=== PATIENT | male | born 1960 | race Caucasian/White ===

== ENCOUNTER 2020-11-13 07:15 | Inpatient (IN) ==
[2020-11-13] MEDS ORDERED: *HR* Propofol 200 MG/20 ML VIAL IVP ONE ×3 (07:53→11:28)
[2020-11-13] MEDS ORDERED: *HR* FentaNYL (PF) 100 MCG/2 ML VIAL ONE ×2 (07:53→11:47)
[2020-11-13] MEDS ORDERED: *HR* Midazolam HCl 2 MG/2 ML VIAL ONE (07:53)
[2020-11-13] MEDS ORDERED: Lidocaine -MPF 2% 2 ML VIAL ONE ×2 (07:55→10:36)
[2020-11-13] MEDS ORDERED: Ondansetron 4 MG/2 ML VIAL ONE (07:55)
[2020-11-13] MEDS ORDERED: *HR* Rocuronium Bromide 50 MG/5 ML VIAL ONE ×3 (07:55→12:20)
[2020-11-13] MEDS ORDERED: CeFAZolin Syr 2,000MG/20 ML 2,000 MG/20 ML SYRINGE IVPB ONE (07:55)
[2020-11-13] MEDS ORDERED: Dexamethasone 4 MG/ML VIAL ONE ×2 (07:55→10:10)
[2020-11-13] MEDS ORDERED: Ringers Solution, Lactated 1,000 ML IVC SCH (08:00)
[2020-11-13] MEDS ORDERED: *HR* HYDROmorphone 2 MG TABLET PO PRN (08:24)
[2020-11-13] MEDS ORDERED: Acetaminophen IV 1,000 MG/100 ML BAG IVPB ONE (08:24)
[2020-11-13] MEDS ORDERED: Pregabalin 75 MG CAPSULE PO ONE (08:24)
[2020-11-13] MEDS ORDERED: *HR* OxyCODONE Immed Rel 5 MG TABLET PO PRN (08:24)
[2020-11-13] MEDS ORDERED: *HR* Labetalol 20 MG/4 ML SYRINGE IVP PRN (08:24)
[2020-11-13] MEDS ORDERED: Famotidine 20 MG/2 ML VIAL IVP ONE (08:24)
[2020-11-13] MEDS ORDERED: *HR* Succinylcholine 200 MG/10 ML VIAL IVP ONE (08:41)
[2020-11-13] MEDS ORDERED: Ketamine *HR* 500 MG/10 ML MDV ONE (08:47)
[2020-11-13] MEDS ORDERED: *HR* Vasopressin 20 UNIT/ML VIAL ONE (08:47)
[2020-11-13] MEDS ORDERED: *HR* Norepinephrine 4 MG/4 ML VIAL IVC ONE (08:57)
[2020-11-13] MEDS ORDERED: Ketorolac 30 MG/ML VIAL ONE (10:24)
[2020-11-13] MEDS ORDERED: *HR* HYDROMORPHONE 2 MG/ML VIAL ONE (10:24)
[2020-11-13] MEDS: *HR* HYDROmorphone (PF) 1 MG/ML SYRINGE IVP PRN ×2 (11:10→11:20)
[2020-11-13] MEDS ORDERED: *HR* HYDROcodone/Acet 5/325 mg TABLET PO PRN (12:11)
[2020-11-13] MEDS ORDERED: Fluticasone Propionate Nasal 50 MCG/SPRAY BOTTLE NS PRN (12:11)
[2020-11-13] MEDS ORDERED: Ondansetron 4 MG/2 ML VIAL IVP PRN (12:11)
[2020-11-13] MEDS ORDERED: Naloxone 0.4 MG/ML INJ IVP PRN (12:11)
[2020-11-13] MEDS ORDERED: D5% in Water 1,000 ML IVC PRN (12:11)
[2020-11-13] MEDS ORDERED: *HR* Dextrose 50 % in Water (Vial) 50 ML VIAL IVP PRN (12:11)
[2020-11-13] MEDS ORDERED: NON-FORMULARY MEDICATION 1 EACH EACH (Hydroxyzine Hcl [Hydroxyzine Hcl] 25 MG Tablet) PO SCH (12:11)
[2020-11-13] MEDS ORDERED: *HR* HYDROcodone/Acet 7.5/325 mg TABLET PO PRN (12:11)
[2020-11-13] MEDS ORDERED: Dextrose Gel 15 GM/37.5 ML TUBE PO PRN ×2 (12:11)
[2020-11-13] MEDS ORDERED: *HR* PHENYLEPHRINE 1,000 MCG/10 ML SYRINGE IVP ONE (12:23)
[2020-11-13] MEDS: Insulin LISPRO 300 UNITS/3 ML VIAL SUBQ SCH ×2 (12:35→17:21)
[2020-11-13] MEDS: 0.9 % Sodium Chloride 1,000 ML IVC SCH (12:37)
[2020-11-13] MEDS: Ketorolac 15 MG/ML VIAL IVP SCH ×2 (12:39→18:17)
[2020-11-13] MEDS: Ipratropium/Albuterol Neb 3 ML IH SCH ×4 (13:03→22:55)
[2020-11-13] MEDS ORDERED: Lidocaine -MPF 4% 5 ML AMPUL ONE (13:30)
[2020-11-13] MEDS: Gabapentin 300 MG CAPSULE PO SCH ×2 (17:25→20:21)
[2020-11-13] MEDS: *HR* Metformin 500 MG TABLET PO SCH (17:25)
[2020-11-13] MEDS: *HR* Heparin 5,000 UNIT/ML VIAL SQ SCH ×2 (17:26→20:20)
[2020-11-13] MEDS: Budesonide/Formoterol 160/4.5 1 PUFF INH IH SCH (19:41)
[2020-11-13] MEDS: Sennosides/Docusate Sodium TABLET PO SCH (20:21)
[2020-11-13] MEDS: Famotidine 20 MG TABLET PO SCH (20:22)
[2020-11-13] MEDS ORDERED: Insulin LISPRO 300 UNITS/3 ML VIAL SUBQ SCH (21:00)
[2020-11-14] MEDS: Ketorolac 15 MG/ML VIAL IVP SCH ×2 (00:35→06:18)
[2020-11-14] MEDS: 0.9 % Sodium Chloride 1,000 ML IVC SCH (02:46)
[2020-11-14] MEDS: Ipratropium/Albuterol Neb 3 ML IH SCH ×3 (04:01→11:44)
[2020-11-14] MEDS: *HR* Heparin 5,000 UNIT/ML VIAL SQ SCH (06:15)
[2020-11-14] MEDS: Insulin LISPRO 300 UNITS/3 ML VIAL SUBQ SCH ×2 (07:50→11:09)
[2020-11-14] MEDS: Sennosides/Docusate Sodium TABLET PO SCH (07:52)
[2020-11-14] MEDS: Gabapentin 300 MG CAPSULE PO SCH (07:52)
[2020-11-14] MEDS: *HR* Metformin 500 MG TABLET PO SCH (07:52)
[2020-11-14] MEDS: Famotidine 20 MG TABLET PO SCH (07:53)
[2020-11-14] MEDS: Budesonide/Formoterol 160/4.5 1 PUFF INH IH SCH (08:05)
[2020-11-14] MEDS ORDERED: Fenofibrate 54 MG TABLET PO SCH (09:00)
[2020-11-14] MEDS ORDERED: [UNRECOGNIZED DRUG - OTHER] PO SCH (09:00)
[2020-11-14] MEDS ORDERED: hydroCHLOROthiazide 25 MG TABLET PO SCH (09:00)
[2020-11-14] MEDS ORDERED: *HR* GlipiZIDE XL (24 HR) 10 MG TABLET PO SCH (09:00)
[2020-11-14] MEDS ORDERED: BENAZEPRIL PO SCH (09:00)
[2020-11-14] MEDS ORDERED: NON-FORMULARY MEDICATION 1 EACH EACH (Fluticasone/Umeclidin/Vilanter [Trelegy Ellipta 100- PO SCH (09:00)
[2020-11-14] MEDS ORDERED: HYDROCHLOROTHIAZIDE PO SCH (09:00)
[2020-11-14] MEDS ORDERED: lisinopriL 20 MG TABLET PO SCH (09:00)
[2020-11-14 10:52] VITALS: BP 115/93
== END 2020-11-14 12:10 | disposition home or self-care (01) | DRG 167 ==
LOC: SAMDAY 07:15 → 2NNU 12:05
PROVIDERS: ADMIT Thoracic Surgery (Cardiothoracic Vascular Surgery); ATTEND Thoracic Surgery (Cardiothoracic Vascular Surgery)

== ENCOUNTER 2020-12-04 09:00 | Inpatient (IN) ==
[~2020-12-04 09:00] MED LIST: *HR* FentaNYL (PF) 100 MCG/2 ML VIAL IVP PRN; *HR* HYDROmorphone (PF) 1 MG/ML SYRINGE IVP PRN; Acetaminophen IV 1,000 MG/100 ML BAG IVPB ONE; Albuterol 2.5 MG/3 ML NEBULIZER IH PRN; Dexamethasone 4 MG/ML VIAL IVP ONE; Famotidine 20 MG/2 ML VIAL IVP ONE; Naloxone 0.4 MG/ML INJ IVP PRN; Nitroglycerin 0.4 MG TAB.SUBL SL PRN; Ondansetron 4 MG/2 ML VIAL IVP PRN; Ringers Solution, Lactated 1,000 ML IVC ONE
[2020-12-04] MEDS ORDERED: CeFAZolin Syr 2,000MG/20 ML 2,000 MG/20 ML SYRINGE IVPB ONE (10:36)
[2020-12-04] MEDS ORDERED: Dexamethasone 4 MG/ML VIAL IVP ONE (10:45)
[2020-12-04] MEDS ORDERED: Famotidine 20 MG/2 ML VIAL IVP ONE (12:15)
[2020-12-04] MEDS ORDERED: Albuterol 2.5 MG/3 ML NEBULIZER IH SCH (12:15)
[2020-12-04] MEDS ORDERED: *HR* FentaNYL (PF) 100 MCG/2 ML VIAL ONE (12:23)
[2020-12-04] MEDS ORDERED: Ondansetron 4 MG/2 ML VIAL ONE (12:23)
[2020-12-04] MEDS ORDERED: Dexamethasone 4 MG/ML VIAL ONE (12:23)
[2020-12-04] MEDS ORDERED: *HR* Propofol 200 MG/20 ML VIAL IVP ONE ×2 (12:24→13:57)
[2020-12-04] MEDS ORDERED: *HR* Midazolam HCl 2 MG/2 ML VIAL ONE (12:25)
[2020-12-04] MEDS ORDERED: *HR* Succinylcholine 200 MG/10 ML VIAL IVP ONE (12:27)
[2020-12-04] MEDS ORDERED: Lidocaine -MPF 2% 2 ML VIAL ONE (12:27)
[2020-12-04] MEDS ORDERED: *HR* Rocuronium Bromide 50 MG/5 ML VIAL ONE ×2 (12:27→13:29)
[2020-12-04] MEDS ORDERED: Lidocaine HCL 4 ML Topical Solution (Laryng-O-Jet Kit Sterile Pak) TP ONE (12:37)
[2020-12-04] MEDS ORDERED: Lidocaine Jelly 6ml 1 APPL/6 ML JEL.PF.APP ONE (12:43)
[2020-12-04] MEDS ORDERED: *HR* PHENYLEPHRINE 1,000 MCG/10 ML SYRINGE IVP ONE (13:31)
[2020-12-04] MEDS ORDERED: *HR* HYDROMORPHONE 2 MG/ML VIAL ONE (14:14)
[2020-12-04] MEDS ORDERED: Ondansetron 4 MG/2 ML VIAL IVP PRN ×2 (14:59→15:47)
[2020-12-04] MEDS ORDERED: Albuterol 2.5 MG/3 ML NEBULIZER IH PRN (14:59)
[2020-12-04] MEDS ORDERED: Naloxone 0.4 MG/ML INJ IVP PRN ×2 (14:59→15:47)
[2020-12-04] MEDS ORDERED: Nitroglycerin 0.4 MG TAB.SUBL SL PRN (14:59)
[2020-12-04] MEDS ORDERED: *HR* FentaNYL (PF) 100 MCG/2 ML VIAL IVP PRN (14:59)
[2020-12-04] MEDS: *HR* HYDROmorphone (PF) 1 MG/ML SYRINGE IVP PRN ×4 (15:05→15:22)
[2020-12-04] MEDS ORDERED: *HR* HYDROcodone/Acet 7.5/325 mg TABLET PO ONE (15:14)
[2020-12-04] MEDS ORDERED: *HR* Dextrose 50 % in Water (Vial) 50 ML VIAL IVP PRN (15:47)
[2020-12-04] MEDS ORDERED: D5% in Water 1,000 ML IVC PRN (15:47)
[2020-12-04] MEDS ORDERED: Dextrose Gel 15 GM/37.5 ML TUBE PO PRN ×2 (15:47)
[2020-12-04] MEDS: Ipratropium/Albuterol Neb 3 ML IH SCH ×3 (15:57→23:36)
[2020-12-04] MEDS: Gabapentin 300 MG CAPSULE PO SCH ×2 (16:54→20:28)
[2020-12-04] MEDS: *HR* HYDROcodone/Acet 5/325 mg TABLET PO PRN (16:54)
[2020-12-04] MEDS: 0.9 % Sodium Chloride 1,000 ML IVC SCH (16:54)
[2020-12-04] MEDS: Insulin LISPRO 300 UNITS/3 ML VIAL SUBQ SCH (17:04)
[2020-12-04] MEDS: Budesonide/Formoterol 160/4.5 1 PUFF INH IH SCH (19:48)
[2020-12-04] MEDS: hydrOXYzine pamoate 25 MG CAPSULE PO SCH (20:28)
[2020-12-04] MEDS: Sennosides/Docusate Sodium TABLET PO SCH (20:28)
[2020-12-04] MEDS: Famotidine 20 MG TABLET PO SCH (20:29)
[2020-12-04] MEDS ORDERED: Insulin LISPRO 300 UNITS/3 ML VIAL SUBQ SCH (21:00)
[2020-12-04] MEDS: *HR* Heparin 5,000 UNIT/ML VIAL SQ SCH (23:10)
[2020-12-05] MEDS: *HR* HYDROcodone/Acet 5/325 mg TABLET PO PRN (00:08)
[2020-12-05 01:24] LABS: Hematocrit 41.2 % (37.5-50.1); Hemoglobin 12.8 g/dL (12.9-16.9); Mean Corpuscular HGB Conc 31.1 g/dL (31.6-35.5); Mean Corpuscular Hemoglobin 26.7 pg (28.0-33.3); Mean Platelet Volume 8.1 fL (9.4-12.4); Platelet Count 460 K/mcL (140-400); Red Blood Count 4.79 M/mcL (4.19-5.50); Red Cell Distribution Width 13.7 % (11.5-14.5); White Blood Count 11.9 K/mcL (4.3-11.1)
[2020-12-05 01:46] LABS: BUN/Creatinine Ratio 19 (6-26); Blood Urea Nitrogen 14 mg/dL (8-23); Calcium 8.9 mg/dL (8.6-10.3); Carbon Dioxide 24 mEq/L (23-29); Chloride 102 mEq/L (98-107); Glucose 130 mg/dL (70-105); Magnesium 2.2 mg/dL (1.6-2.6); Osmolality,Calculated 286 (280-300); Potassium 4.1 mEq/L (3.5-5.1); Sodium 137 mEq/L (136-145); eGFR For African Americans > 60 (> 60); eGFR For Non-African Americans > 60 (> 60)
[2020-12-05] MEDS: Ipratropium/Albuterol Neb 3 ML IH SCH ×3 (03:44→11:11)
[2020-12-05] MEDS ORDERED: *HR* HYDROmorphone 2 MG/ML SYRINGE IVP ONE (03:46)
[2020-12-05] MEDS: *HR* HYDROcodone/Acet 7.5/325 mg TABLET PO PRN ×2 (04:03→07:44)
[2020-12-05] MEDS: *HR* Heparin 5,000 UNIT/ML VIAL SQ SCH (06:51)
[2020-12-05] MEDS: Budesonide/Formoterol 160/4.5 1 PUFF INH IH SCH (07:18)
[2020-12-05] MEDS: Sennosides/Docusate Sodium TABLET PO SCH (07:32)
[2020-12-05] MEDS: Gabapentin 300 MG CAPSULE PO SCH (07:33)
[2020-12-05] MEDS: hydrOXYzine pamoate 25 MG CAPSULE PO SCH (07:33)
[2020-12-05] MEDS: Famotidine 20 MG TABLET PO SCH (07:33)
[2020-12-05 07:44] VITALS: BP 137/77
[2020-12-05] MEDS: Insulin LISPRO 300 UNITS/3 ML VIAL SUBQ SCH (07:44)
[2020-12-05] MEDS: 0.9 % Sodium Chloride 1,000 ML IVC SCH (08:03)
[2020-12-05] MEDS ORDERED: Fenofibrate 54 MG TABLET PO SCH (09:00)
[2020-12-05] MEDS ORDERED: hydroCHLOROthiazide 25 MG TABLET PO SCH (09:00)
[2020-12-05] MEDS ORDERED: Aspirin 81 MG TAB.CHEW PO SCH (09:00)
[2020-12-05] MEDS ORDERED: HYDROCHLOROTHIAZIDE PO SCH (09:00)
[2020-12-05] MEDS ORDERED: Loratadine 10 MG TABLET PO SCH (09:00)
[2020-12-05] MEDS ORDERED: [UNRECOGNIZED DRUG - OTHER] PO SCH (09:00)
[2020-12-05] MEDS ORDERED: lisinopriL 20 MG TABLET PO SCH (09:00)
[2020-12-05] MEDS ORDERED: *HR* GlipiZIDE XL (24 HR) 10 MG TABLET PO SCH (09:00)
[2020-12-05] MEDS ORDERED: BENAZEPRIL PO SCH (09:00)
== END 2020-12-05 11:43 | disposition home or self-care (01) | DRG 908 ==
LOC: SAMDAY 09:00 → 2NNU 15:43
PROVIDERS: ADMIT Thoracic Surgery (Cardiothoracic Vascular Surgery); ATTEND Thoracic Surgery (Cardiothoracic Vascular Surgery)